=== PATIENT | female | born 2005 | race Two or more races ===

== ENCOUNTER 2024-08-16 21:14 | Emergency (ER) | payer OTHER, SELFPAY ==
[2024-08-16 21:31] VITALS: BP 129/49; PULSE 78; RESP 16; TEMP 36.6; O2SAT 99
--- NOTE | 2024-08-16 22:16 | ED_ITS ---
HPI - General Adult General Chief complaint: Wound/Laceration Stated complaint: right hand middle finger pt bite/wc Time Seen by Provider: 08/16/24 21:23 Source: patient Mode of arrival: ambulatory Limitations: no limitations History of Present Illness ED Provider: Lindsey Galvez NP HPI narrative: Patient is a 19-year-old female who presents emergency department coming from inpatient psychiatric unit as an [employer] [facility] [employer] employee. She reports that during a patient restraint the patient was squeezing her hand and she realized after the fact that his nail had dug into the side of her right middle finger. Denies any pain, pus-like drainage, active bleeding Related Data Allergies Allergy/AdvReac Type Severity Reaction Status Date / Time No Known Allergies Allergy Verified 08/16/24 21:27 Review of Systems Review of Systems: Yes all other systems are reviewed and are negative PMFSH Past Medical History Attestation statement: The following information was validated with the patient. Source: old records reviewed Social History Social History Advance Directives: No Advance Directives Information Provided: No Do you have a plan to hurt others: No Plan Physical Exam ED Vital Signs: Vital Signs - 24 hr 08/16/24 21:31 Temperature 97.9 F Pulse Rate 78 Respiratory Rate 16 Blood Pressure 129/49 L Pulse Oximetry 99 Oxygen Delivery Method Room Air BMI result Body Mass Index 30.0 Appearance: Alert.?Oriented to person, place and time. No acute distress.?Normal affect.?? Skin: Skin warm and dry.? Normal skin color.? Normal skin turgor.? Linear superficial abrasion to the right 3rd digit PICC along the lateral aspect no active bleeding Extremities: No lower extremity edema.? Full range of motion to the digits of the right hand Neuro: Moves all extremities spontaneously. Sensation intact bilaterally. Ambulates with normal steady gait. Medical Decision Making Medical Decision Making [facility] Narrative: Patient is a 19-year-old female presents emergency department for evaluation of a superficial abrasion to the lateral aspect of the right 3rd PIP sustained from a patient's fingernail while at work. Range of motion to the digit, unlikely to have any acute osseous abnormality that would warrant x-ray imaging. Hand was cleansed with water and soap. Topical bacitracin applied and a bandage to cover. Discussed localized wound treatment, monitoring for signs of infection worrisome signs and symptoms that would warrant re-evaluation. All questions answered. Stable for discharge Differential Diagnosis Differential Diagnoses: The differential diagnosis associated with the presentation includes (See narrative above) External Record Review External record reviewed: Outpatient record Prescription Management I considered prescription management with: Pain Medication (Acetaminophen/ibuprofen) and Antibiotic (Bacitracin) Discharge Plan Discharge Clinical Impression: Abrasion Patient Disposition: Home, Self-Care Additional Instructions: Cleanse the area 3 times daily with warm water and non scented soap, you may apply topical bacitracin/antibiotic ointment to the area. Monitor for signs of infection including increased pain, swelling, redness, pus-like drainage. Follow-up with [facility] as needed. Referrals: [facility] [Provider Group] Print Language: Slovenian
[2024-08-16 22:31] VITALS: BP 129/49; PULSE 78; RESP 16; TEMP 36.6; O2SAT 99
== END 2024-08-16 22:31 | disposition home or self-care (01) ==
PROVIDERS: Emergency Provider Emergency Medicine Emergency Medical Services
DX: S60.412A Abrasion of right middle finger, initial encounter (principal); W50.4XXA Accidental scratch by another person, initial encounter; Y93.F9 Activity, other caregiving; Y92.230 Patient room in hospital as the place of occurrence of the external cause; Y99.0 Civilian activity done for income or pay
CPT/HCPCS: 99283

== ENCOUNTER 2024-12-23 23:01 | Emergency (ER) | payer OTHER, SELFPAY ==
--- NOTE | ~2024-12-23 | XR_ITS ---
CLINICAL HISTORY: fall 5 view left ankle Comparison: None Findings: No acute fractures. Ankle mortise intact. Possible small left ankle effusion. No radiopaque foreign body. IMPRESSION: 1. No acute fracture or dislocation injury identified at the left ankle. This document has been electronically signed by: Shawn Campos MD on 12/24/2024 01:06:56
[2024-12-23 23:03] VITALS: BP 122/68; PULSE 67; RESP 17; TEMP 37.1; O2SAT 100; BMI 33.4
--- NOTE | 2024-12-24 00:50 | ED.FALL ---
HPI - Fall General Chief Complaint: Fall Stated Complaint: Workman comp, fall Time Seen by Provider: 12/24/24 00:13 History of Present Illness HPI Narrative: Patient is a 19-year-old female status post fall. Patient went down 3 steps by mistake. Twisted the left ankle. Complaining of pain localized to the area. There is no systemic complaints. There is no nausea no vomiting. There is no head injury. Patient is from home. Related Data Allergies Allergy/AdvReac Type Severity Reaction Status Date / Time No Known Allergies Allergy Verified 12/23/24 23:05 Review of Systems Review of Systems: Positive pain to the left ankle Yes all other systems are reviewed and are negative [facility] Past Medical History Attestation statement: The following information was validated with the patient. Social History Social History Advance Directives: No Advance Directives Information Provided: No Do you have a plan to hurt others: No Plan Physical Exam Vital Signs: Vital Signs: Last Vital Signs Temp 98.7 F 12/23/24 23:03 Pulse 67 12/23/24 23:03 Resp 17 12/23/24 23:03 BP 122/68 12/23/24 23:03 Pulse Ox 100 12/23/24 23:03 O2 Del Method Room Air 12/23/24 23:03 BMI result Body Mass Index 33.4 Appearance: Alert. Oriented X3. No acute distress. Eyes: Pupils equal, round and reactive to light. ENT: Pharynx normal. Neck: Normal inspection. Neck supple. No lymph nodes noted. No crepitus CVS: Normal heart rate and rhythm. Pulses normal. Normal S1 and S2 Respiratory: No respiratory distress. Breath sounds normal. No Wheezing. No rales Abdomen: Soft and nontender. No rigidity. No distention. good BS x4 Skin: Skin warm and dry. Normal skin color. Normal skin turgor. Extremities: No lower extremity edema. Examination of the left ankle showed no gross deformities. There is minimal tenderness on palpation of the lateral malleolus. There is no tenderness at the base of the 5th metatarsal. There is good distal pulses. There is good sensation. Capillary refill less than 2 seconds. Neuro: Oriented X 3. No motor deficit. No sensory deficit. Moving all extermities. No slurred speech Medical Decision Making Medical Decision Making [facility] Narrative: My interpretation of the ankle x-ray was grossly negative. No acute fracture. Will ask patient to use some Spenser bandage. Close follow-up outpatient with [facility]. This incident happened at work. Patient in no distress. Differential Diagnosis Differential Diagnoses: The differential diagnosis associated with the presentation includes Ankle fracture versus ankle sprain Admission/Observation Consideration of admission/observation: Escalation of care including admission/observation considered No need to stay pain is controlled Lab Data [facility] Lab Attestation statement: I reviewed the patient's lab results. Independent Interpretation I performed an independent interpretation of an: Plain X-Ray (My interpretation patient's left ankle x-ray is grossly negative) Discharge Plan Discharge Clinical Impression: Ankle sprain Patient Disposition: Home, Self-Care Instructions: Ankle Sprain (DC) Referrals: [facility] [Provider Group] - 12/27/24 Print Language: Finnish
[2024-12-24 01:27] VITALS: BP 118/58; PULSE 64; RESP 16; TEMP 36.8; O2SAT 98
== END 2024-12-24 01:32 | disposition home or self-care (01) ==
PROVIDERS: Emergency Provider Emergency Medicine Emergency Medical Services
DX: S93.402A Sprain of unspecified ligament of left ankle, initial encounter (principal); M25.572 Pain in left ankle and joints of left foot; X50.1XXA Overexertion from prolonged static or awkward postures, initial encounter; Y93.9 Activity, unspecified; Y92.9 Unspecified place or not applicable; Y99.0 Civilian activity done for income or pay
CPT/HCPCS: 73610; 99283

== ENCOUNTER → 2024-12-23 23:58 | Outpatient (BNV) | payer SELFPAY | PROVIDERS: Emergency Provider Emergency Medicine Emergency Medical Services; Visit Provider Radiology Diagnostic Radiology | DX: S93.402A Sprain of unspecified ligament of left ankle, initial encounter (principal); W19.XXXA Unspecified fall, initial encounter | CPT/HCPCS: 73610 ==